=== PATIENT | male | born 1940 | race Caucasian/White ===

== ENCOUNTER 2018-03-12 14:21 | Outpatient (CLI) | payer MEDICARE, SELFPAY ==
[2018-03-12 14:39] LABS: Abs Immature Grans 0.02 k/cumm (0.0-0.09); Absolute Basophil Count 0.02 k/cumm (0.0-0.2); Absolute Eosinophil Count 0.08 k/cumm (0.0-0.7); Absolute Lymphocyte Count 1.06 k/cumm (1.2-3.4); Absolute Monocyte Count 0.62 k/cumm (0.11-0.7); Absolute Neutrophil Count 5.36 k/cumm (1.2-6.7); Basophils % 0.3; Eosinophils % 1.1; HCT 36.8 % (40.0-50.0); HGB 12.1 g/dL (13.5-17.5); Immature Grans % 0.3; Lymphocytes % 14.8; Mean Corp. HGB Concentration 32.9 g/dL (32.0-36.0); Mean Corpuscular Hemoglobin 31.7 pg (27.0-33.0); Mean Corpuscular Volume 96.3 fL (80-95); Monocytes % 8.7; Neutrophils % 74.8; Platelet Count 237 x1000/uL (130-400); RBC 3.82 m/cumm (4.50-6.00); RBC Distribution Width 16.1 % (11.8-14.1); White Blood Cell Count 7.16 k/cumm (4.4-10.8)
[2018-03-12 14:53] LABS: ALT 39 U/L (12-78); AST 62 U/L (15-37); Albumin 2.9 g/dL (3.4-5.0); Alkaline Phosphatase 654 U/L (46-116); Anion Gap 7.8 mmol/L (3-11); BUN 35 mg/dL (7-18); Bilirubin, Total 1.3 mg/dL (0.2-1.0); CO2 30.2 mmol/L (21.0-32.0); CREATININE 1.96 mg/dL (0.70-1.30); Calcium 8.1 mg/dL (8.5-10.1); Chloride 106 mmol/L (98-107); Estimated GFR 33.24 (mL/min/1.73m2); Glucose 155 mg/dL (70-100); Potassium 4.5 mmol/L (3.5-5.1); Sodium 144 mmol/L (136-145); Total Protein 6.8 g/dL (6.4-8.2)
== END 2018-03-12 14:41 ==
PROVIDERS: Visit Provider Nurse Practitioner Adult Health
DX: C34.90 Malignant neoplasm of unspecified part of unspecified bronchus or lung (principal); C78.7 Secondary malignant neoplasm of liver and intrahepatic bile duct
CPT/HCPCS: 36415; 80053; 85025

== ENCOUNTER 2018-03-26 01:25 | Outpatient (RCR) | payer MEDICARE, SELFPAY | END 2018-03-28 23:59 | disposition home or self-care (01) | LOC: INF 01:25 | PROVIDERS: Visit Provider Nurse Practitioner Adult Health | DX: R69 Illness, unspecified (principal) ==

== ENCOUNTER 2018-03-26 09:10 | Outpatient (CLI) | payer MEDICARE, SELFPAY ==
[2018-03-26 09:44] LABS: Abs Immature Grans 0.05 k/cumm (0.0-0.09); Absolute Basophil Count 0.01 k/cumm (0.0-0.2); Absolute Eosinophil Count 0.04 k/cumm (0.0-0.7); Absolute Lymphocyte Count 0.97 k/cumm (1.2-3.4); Absolute Monocyte Count 0.74 k/cumm (0.11-0.7); Absolute Neutrophil Count 4.12 k/cumm (1.2-6.7); Basophils % 0.2; Eosinophils % 0.7; HCT 31.7 % (40.0-50.0); HGB 10.4 g/dL (13.5-17.5); Immature Grans % 0.8; Lymphocytes % 16.4; Mean Corp. HGB Concentration 32.8 g/dL (32.0-36.0); Mean Corpuscular Hemoglobin 32.1 pg (27.0-33.0); Mean Corpuscular Volume 97.8 fL (80-95); Mean Platelet Volume 10.8 fL (8.0-11.0); Monocytes % 12.5; Neutrophils % 69.4; Platelet Count 236 x1000/uL (130-400); RBC 3.24 m/cumm (4.50-6.00); RBC Distribution Width 16.3 % (11.8-14.1); White Blood Cell Count 5.93 k/cumm (4.4-10.8)
[2018-03-26 09:56] LABS: ALT 27 U/L (12-78); AST 60 U/L (15-37); Albumin 2.3 g/dL (3.4-5.0); Alkaline Phosphatase 552 U/L (46-116); Anion Gap 7.5 mmol/L (3-11); BUN 38 mg/dL (7-18); Bilirubin, Total 1.2 mg/dL (0.2-1.0); CO2 27.5 mmol/L (21.0-32.0); CREATININE 1.83 mg/dL (0.70-1.30); Calcium 7.5 mg/dL (8.5-10.1); Chloride 102 mmol/L (98-107); Estimated GFR 35.98 (mL/min/1.73m2); Glucose 224 mg/dL (70-100); Potassium 4.2 mmol/L (3.5-5.1); Sodium 137 mmol/L (136-145); Total Protein 5.8 g/dL (6.4-8.2)
== END 2018-03-26 09:30 ==
PROVIDERS: Visit Provider Nurse Practitioner Adult Health
DX: C34.90 Malignant neoplasm of unspecified part of unspecified bronchus or lung (principal); C78.7 Secondary malignant neoplasm of liver and intrahepatic bile duct
CPT/HCPCS: 36415; 80053; 85025

== ENCOUNTER 2018-04-27 00:50 | Outpatient (RCR) | payer MEDICARE, SELFPAY ==
[2018-04-09] MEDS: Normal Saline Flush 10 ML SYR IVP (09:25)
[2018-04-09 09:52] LABS: Abs Immature Grans 0.07 k/cumm (0.0-0.09); Absolute Basophil Count 0.02 k/cumm (0.0-0.2); Absolute Eosinophil Count 0.04 k/cumm (0.0-0.7); Absolute Lymphocyte Count 0.92 k/cumm (1.2-3.4); Absolute Monocyte Count 0.85 k/cumm (0.11-0.7); Absolute Neutrophil Count 4.06 k/cumm (1.2-6.7); Basophils % 0.3; Eosinophils % 0.7; HCT 28.9 % (40.0-50.0); HGB 9.7 g/dL (13.5-17.5); Immature Grans % 1.2; Lymphocytes % 15.4; Mean Corp. HGB Concentration 33.6 g/dL (32.0-36.0); Mean Corpuscular Hemoglobin 33.1 pg (27.0-33.0); Mean Corpuscular Volume 98.6 fL (80-95); Monocytes % 14.3; Neutrophils % 68.1; Platelet Count 192 x1000/uL (130-400); RBC 2.93 m/cumm (4.50-6.00); RBC Distribution Width 18.6 % (11.8-14.1); White Blood Cell Count 5.96 k/cumm (4.4-10.8)
[2018-04-09 10:00] LABS: ALT 32 U/L (12-78); AST 63 U/L (15-37); Albumin 2.2 g/dL (3.4-5.0); Alkaline Phosphatase 403 U/L (46-116); Anion Gap 6.8 mmol/L (3-11); BUN 48 mg/dL (7-18); Bilirubin, Total 1.1 mg/dL (0.2-1.0); CO2 29.2 mmol/L (21.0-32.0); CREATININE 1.95 mg/dL (0.70-1.30); Calcium 7.3 mg/dL (8.5-10.1); Chloride 102 mmol/L (98-107); Estimated GFR 33.44 (mL/min/1.73m2); Glucose 252 mg/dL (70-100); Potassium 3.8 mmol/L (3.5-5.1); Sodium 138 mmol/L (136-145); Total Protein 5.6 g/dL (6.4-8.2)
[2018-04-09 10:45] LABS: Anisocytosis 2+; Basophilic Stippling Present; Diff Comment Agrees w/ Instrument; Hypochromasia 1+; Macrocytosis 1+; Microcytosis 1+; Polychromasia Present
[2018-04-27] MEDS: Normal Saline Flush 10 ML SYR IVP (10:25)
[2018-04-27 10:42] LABS: Abs Immature Grans 0.14 k/cumm (0.0-0.09); HCT 29.7 % (40.0-50.0); HGB 10.1 g/dL (13.5-17.5); Mean Corpuscular Hemoglobin 34.2 pg (27.0-33.0); Mean Corpuscular Volume 100.7 fL (80-95); Mean Platelet Volume 11.1 fL (8.0-11.0); Platelet Count 262 x1000/uL (130-400); RBC 2.95 m/cumm (4.50-6.00); RBC Distribution Width 22.5 % (11.8-14.1); White Blood Cell Count 7.85 k/cumm (4.4-10.8)
[2018-04-27 10:53] LABS: ALT 26 U/L (12-78); AST 76 U/L (15-37); Alkaline Phosphatase 288 U/L (46-116); Anion Gap 8.3 mmol/L (3-11); BUN 76 mg/dL (7-18); Bilirubin, Total 1.3 mg/dL (0.2-1.0); CO2 28.7 mmol/L (21.0-32.0); CREATININE 3.09 mg/dL (0.70-1.30); Calcium 7.1 mg/dL (8.5-10.1); Chloride 102 mmol/L (98-107); Estimated GFR 19.66 (mL/min/1.73m2); Glucose 132 mg/dL (70-100); Potassium 4.1 mmol/L (3.5-5.1); Sodium 139 mmol/L (136-145); Total Protein 5.6 g/dL (6.4-8.2)
[2018-04-27 11:29] LABS: Absolute Lymphocyte Count 1.26 k/cumm (1.2-3.4)
[2018-04-27 11:30] LABS: Basophilic Stippling Present; Diff Comment Manual Differential; Nucleated RBC 5 /100WBC
[2018-04-27 11:31] LABS: Macrocytosis 2+
== END 2018-04-27 23:59 | disposition home or self-care (01) ==
LOC: INF 00:50
PROVIDERS: Visit Provider Nurse Practitioner Adult Health
DX: C34.90 Malignant neoplasm of unspecified part of unspecified bronchus or lung (principal); C78.7 Secondary malignant neoplasm of liver and intrahepatic bile duct; Z45.2 Encounter for adjustment and management of vascular access device
CPT/HCPCS: 36591; 80053; 96523; 85025